=== PATIENT | female | born 1975 | race Caucasian/White ===

== ENCOUNTER → 2017-06-09 | Outpatient (CLI) | payer OTHER ==
[~2017-06-09] MED LIST: AFRIN MENTHOL S15 ML NS; CHANTIX1 MG PO; CIPRO500 MG PO; CLEOCIN HCL300 MG PO; FLEXERIL PO; IBUPROFEN 800800 MG PO; NAPROSYN500 MG PO; NORCO 5-325 TA1 EACH PO; SERTRALINE; SYNTHROID25 MCG PO; VICODIN 5-5001 EACH PO; XANAX; ZOFRAN ODT4 MG PO
[2017-06-11 11:07] LABS: URINE CREATININE 30.1 mg/dL (Not Estab.); URINE PROTEIN (MG/DL) < 4.0 mg/dL (Not Estab.)
== END ==
LOC: M.LAB 22:22
DX: Z00.5 Encounter for examination of potential donor of organ and tissue (principal)